=== PATIENT | male | born 1990 | race Caucasian/White ===

== ENCOUNTER 2024-01-16 15:20 | Outpatient (AMB) | payer OTHER, SELFPAY ==
--- NOTE | 2024-01-16 15:32 | A.OFFVISCC_ITS ---
Intake Visit Reasons: MAT Intake Allergies acetaminophen [From TYLENOL] Allergy (Unknown, Unverified 06/08/20 17:29) SICK TO STOMACH morphine [MORPHINE] Allergy (Unknown, Unverified 06/08/20 17:29) CHEST TIGHTNESS Penicillins [PENICILLINS] Allergy (Unknown, Unverified 06/08/20 17:29) HIVES tramadol [TRAMADOL] Allergy (Unknown, Unverified 06/08/20 17:29) TOO MUCH SEDATION HPI HPI MAT Intake: Details: Patient presents for intake and evaluation to transfer care to [facility] Previously doing HANNAH treatment via telehealth Weds last appt with provider At least 10 years 4mg daily (2mg BID) Medical History TKR 3 years ago via [facility] --right knee Pain in left knee Psoriatic arthritis--neck, shoulders, back Flonase inhaler gas relief asthma PCP: [facility] -couple years ago Started taking opiates in his teens to early Percocet 5mg --6x/day for about 8 years Knee pain Switched to Suboxone Substance Use History denies any use cocaine X1 when he was a teenager no alcohol BH: therapist: Grant monthly Denies any BH history Social 4 children 18, and 3 year old and 2 step kids (08/03) 4 years Medically disabled Brand name only (prior auth completed) Review of Systems Const Reports as per HPI and Reports no additional complaints Physical Exam Const General: cooperative, healthy appearing and no acute distress Nutritional Appearance: thin Orientation/consciousness: patient oriented x3 Limitations: no limitations Neuro General: patient oriented x3 Psych Appearance: well kempt Speech and movement: Clear speech present Affect: normal affect Attitude: cooperative Thought process: Circumstantial thought process present Thought content: Normal thought content present Insight: Good insight present (Psych) Judgement: Good judgement present (Psych) Assessment & Plan Assessment & Plan (1) Opioid dependence: Code(s): F11.20 - Opioid dependence, uncomplicated Category: Medical Plan: * continue suboxone at current dose * no refill needed at this time * follow up as scheduled
== END 2024-01-16 16:22 | disposition home or self-care (01) ==
PROVIDERS: PCP Internal Medicine; Visit Provider Nurse Practitioner Psychiatric/Mental Health
DX: F11.20 Opioid dependence, uncomplicated (principal)
CPT/HCPCS: 99204

== ENCOUNTER → 2024-01-16 15:20 | Outpatient (BNVA) | payer OTHER, SELFPAY | PROVIDERS: PCP Internal Medicine; Visit Provider Nurse Practitioner Psychiatric/Mental Health | DX: F11.20 Opioid dependence, uncomplicated (principal) | CPT/HCPCS: 99202 ==

== ENCOUNTER 2024-02-18 12:53 | Outpatient (AMB) | payer OTHER, SELFPAY ==
--- NOTE | 2024-02-18 13:01 | A.OFFVISCC_ITS ---
Vital Signs 02/18/24 13:02 BP 140/92 H Blood Pressure Location Rt brachial Position Sitting Pulse 75 Pulse Source Pulse Oximeter Pulse Oximetry (%) 97 Oxygen Delivery Method Room Air Intake Visit Reasons: MAT Visit Allergies acetaminophen [From TYLENOL] Allergy (Unknown, Unverified 06/08/20 17:29) SICK TO STOMACH morphine [MORPHINE] Allergy (Unknown, Unverified 06/08/20 17:29) CHEST TIGHTNESS Penicillins [PENICILLINS] Allergy (Unknown, Unverified 06/08/20 17:29) HIVES tramadol [TRAMADOL] Allergy (Unknown, Unverified 06/08/20 17:29) TOO MUCH SEDATION HPI HPI MAT Visit: Details: Patient presents for MAT clinic Has been taking suboxone for pain, was previously on narcotics but states he did not like how they made him feel Reports he has multiple surgeries to bilateral knees in addition to hernia repair Is hoping to trial a medication he does not need to take daily, states he gets busy and will forget to take his med until his pain flares States he has had reactions to generic suboxone (tachycardia, black outs , and increased asthma attacks), and is only able to tolerate name brand HPI Comments Details: Patient presents for MAT visit Review of Systems Const Reports as per HPI Physical Exam Vital Signs: Last Vital Signs Pulse 75 02/18/24 13:02 BP 140/92 H 02/18/24 13:02 Pulse Ox 97 02/18/24 13:02 Oxygen Delivery Method Room Air 02/18/24 13:02 Const General: cooperative and no acute distress Resp Effort & Inspection: normal respiratory effort and able to speak in complete sentences Psych Appearance: grossly normal Mental Status: mental status grossly normal Speech and movement: Normal speech and movement present Affect: normal affect Attitude: cooperative Thought process: Normal thought process present Results AMB 14 Panel Urine Drug Screen Urine Marijuana (THC) Positive Last Edit by Suzi Park CMA on 02/18/24 13 :06 Urine Cocaine Negative Last Edit by Suzi Park CMA on 02/18/24 13:06 Urine Morphine Negative Last Edit by Suzi Park CMA on 02/18/24 13:06 Urine Methamphetamine Negative Last Edit by Suzi Park CMA on 02/18/24 13 :06 Urine Amphetamine Negative Last Edit by Suzi Park CMA on 02/18/24 13:06 Urine Benzodiazepine Negative Last Edit by Suzi Park CMA on 02/18/24 13: 06 Urine Barbiturates Negative Last Edit by Suzi Park CMA on 02/18/24 13:06 Urine Methadone Negative Last Edit by Suzi Park CMA on 02/18/24 13:06 Urine Buprenorphine Positive Last Edit by Suzi Park CMA on 02/18/24 13:0 6 Urine Tricyclic Antidepressant Negative Last Edit by Suzi Park CMA on 02/18/24 13:06 Urine MDMA Negative Last Edit by Suzi Park CMA on 02/18/24 13:06 Urine Oxycodone Negative Last Edit by Suzi Park CMA on 02/18/24 13:06 Urine Phencyclidine Negative Last Edit by Suzi Park CMA on 02/18/24 13:0 6 Urine Propoxyphene Negative Last Edit by Suzi Park CMA on 02/18/24 13:06 Results Reviewed Results Reviewed: Laboratory Last Values POC Urine Buprenorphine Positive 02/18/24 13:05 POC Urine Morphine Negative 02/18/24 13:05 POC Urine Oxycodone Negative 02/18/24 13:05 POC Urine Methadone Negative 02/18/24 13:05 POC Urine Propoxyphene Negative 02/18/24 13:05 POC Urine Barbiturates Negative 02/18/24 13:05 POC U Tricyclic Antidpr Negative 02/18/24 13:05 POC Urine PCP Negative 02/18/24 13:05 POC Ur Amphetamines Negative 02/18/24 13:05 POC Ur Methamphetamine Negative 02/18/24 13:05 POC Urine MDMA Negative 02/18/24 13:05 POC Ur Benzodiazepine Negative 02/18/24 13:05 POC Urine Cocaine Negative 02/18/24 13:05 POC Ur Marijuana (THC) Positive 02/18/24 13:05 Assessment & Plan Assessment & Plan (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 Given patient's lack of HANNAH history, the patch is more clinically appropriate at this time vs the injection. -Education provided to rotate sites, cover if he will be swimming, monitor area for localized reaction, and to remove if he feels as though he is having any adverse reactions similar to when he took generic films. Educated him not to use heating pad with patch or to wear patch in hot tub as it will increase absorption rate. -Reviewed with him to call the clinic if his pain increases, if he has a reaction to the medication, or if he has difficulties obtaining from the pharmacy -Follow up 1 week telehealth to review effectiveness of patch Orders: Orders AMB 14 Panel Urine Drug Screen Today Z51.81 - Encounter for therapeutic drug level monitoring Medications: New Butrans 5 mcg/hour (buprenorphine) 1 patch transdermal Q7D 4 ea 0RF NS Z79.899 - Other equipment operator intermodal yard (current) drug therapy
[2024-02-18 13:02] VITALS: BP 140/92; PULSE 75; O2SAT 97
== END 2024-02-18 13:33 | disposition home or self-care (01) ==
PROVIDERS: PCP Internal Medicine; Visit Provider Nurse Practitioner Family
DX: Z51.81 Encounter for therapeutic drug level monitoring (principal); Z79.899 Other long term (current) drug therapy
CPT/HCPCS: 99213

== ENCOUNTER → 2024-02-18 12:53 | Outpatient (BNVA) | payer OTHER, SELFPAY | PROVIDERS: PCP Internal Medicine; Visit Provider Nurse Practitioner Family | DX: Z51.81 Encounter for therapeutic drug level monitoring (principal); Z79.899 Other long term (current) drug therapy | CPT/HCPCS: 80305; 99212 ==

== ENCOUNTER 2024-03-17 10:20 | Outpatient (AMB) | payer OTHER, SELFPAY ==
--- NOTE | 2024-03-17 10:24 | A.OFFVISCC_ITS ---
Intake Visit Reasons: MAT Allergies acetaminophen [From TYLENOL] Allergy (Unknown, Unverified 06/08/20 17:29) SICK TO STOMACH morphine [MORPHINE] Allergy (Unknown, Unverified 06/08/20 17:29) CHEST TIGHTNESS Penicillins [PENICILLINS] Allergy (Unknown, Unverified 06/08/20 17:29) HIVES tramadol [TRAMADOL] Allergy (Unknown, Unverified 06/08/20 17:) TOO MUCH SEDATION HPI HPI MAT: Details: Patient presents for follow up Reporting increasing pain in left knee--using cane for right now Currently prescribed Suboxone 2mg BID Labs to be complete today Needs to schedule appt with PCP Review of Systems Const Reports as per HPI and Reports no additional complaints Physical Exam Const General: cooperative and no acute distress Resp Effort & Inspection: normal respiratory effort and able to speak in complete sentences Psych Appearance: grossly normal Mental Status: mental status grossly normal Speech and movement: Normal speech and movement present Affect: normal affect Attitude: cooperative Thought process: Normal thought process present Assessment & Plan Assessment & Plan (1) Opioid dependence: Code(s): F11.20 - Opioid dependence, uncomplicated Category: Medical Plan: * follow up 5 weeks * rx due in a week
== END 2024-03-17 10:40 | disposition home or self-care (01) ==
PROVIDERS: PCP Internal Medicine; Visit Provider Nurse Practitioner Psychiatric/Mental Health
DX: F11.20 Opioid dependence, uncomplicated (principal)
CPT/HCPCS: 99213

== ENCOUNTER 2024-03-17 10:20 | Outpatient (REF) | payer OTHER, SELFPAY ==
[2024-03-17 11:03] LABS: MANUAL DIFF FLAG NO
[2024-03-17 11:38] LABS: Basophils Absolute Auto 0.1 X10*3/uL (0.0-0.2); Basophils Percent Auto 0.7 % (0-2); Eosinophils Absolute Auto 1.2 X10*3/uL (0.0-0.4); Hematocrit 40.7 % (42.0-52.0); Hemoglobin 13.9 g/dl (14.0-18.0); Imm Gran Abs Auto 0.02 X10*3/uL (0.00-0.03); Imm Gran Pct Auto 0.2 % (0.0-0.4); Lymphocytes Absolute Auto 2.3 X10*3/uL (1.2-4.9); Lymphocytes Percent Auto 25.5 % (20-40); Mean Corpuscular HGB Conc 34.2 g/dl (31.0-36.0); Mean Corpuscular Hemoglobin 30.9 pg (27.0-33.0); Mean Corpuscular Volume 90.4 fL (80.0-98.0); Mean Platelet Volume 10.1 fL (9.4-12.4); Monocytes Absolute Auto 0.8 X10*3/uL (0.1-1.2); Monocytes Percent Auto 8.7 % (2-11); Neutrophils Absolute Auto 4.6 x10*3/uL (2.0-8.3); Neutrophils Percent Auto 51.9 % (45-73); Platelet Count 193 X10*3/uL (160-400); Red Cell Distribution Width 12.7 % (11.0-16.0); White Blood Count 8.9 X10*3/uL (4.8-10.8)
[2024-03-17 12:31] LABS: Alanine Aminotransferase 15 U/L (0-40); Albumin Level 4.5 g/dL (3.5-5.0); Alkaline Phosphatase 46 U/L (39-117); Anion Gap 11 (12-20); Aspartate Amino Transferase 20 U/L (5-37); Bilirubin Direct 0.2 mg/dL (0.0-0.5); Bilirubin Total 0.4 mg/dL (0.0-1.0); Blood Urea Nitrogen 13 mg/dL (9-16); Calcium 9.2 mg/dL (8.4-10.2); Carbon Dioxide 28 mmol/L (22-29); Chloride 105 mmol/L (96-108); Estimated Glomerular Filt Rate > 60; Glucose Random 80 mg/dL (60-115); Potassium 4.4 mmol/L (3.3-5.1); Sodium 140 mmol/L (135-145); Total Protein 7.2 g/dL (6.5-8.0)
[2024-03-17 12:53] LABS: Hepatitis A Antibody IgG Nonreactive (Nonreactive); Hepatitis A Antibody IgM 0.14 Index (0-0.79); ~Hepatitis A Antibody IgG 0.15 S/CO (0.00-0.99); ~Hepatitis A Antibody IgM Nonreactive (Nonreactive)
[2024-03-17 12:54] LABS: HBS Num1 7.19 mIU/mL (0-7.99); HBc Num1 0.07 S/CO (0.00-0.79); HBsAGNum1 0.32 S/CO (0.00-0.99); HIV AB/AG Nonreactive (Nonreactive); HIV Num 1 0.06 S/CO (0.00-0.99); Hepatitis B Core Antibody Nonreactive (Nonreactive); Hepatitis B Surface Antigen Negative (Negative); ~HepC Num1 1.29 S/CO (0.00-0.79); ~Hepatitis B Surface Antibody NONREACTIVE (Nonreactive); ~Hepatitis C Antibody Reactive (Nonreactive)
== END 2024-03-17 10:21 | disposition home or self-care (01) ==
LOC: HO.LAB 10:20
PROVIDERS: PCP Internal Medicine; Visit Provider Nurse Practitioner Psychiatric/Mental Health
DX: F11.20 Opioid dependence, uncomplicated (principal); Z79.899 Other long term (current) drug therapy
CPT/HCPCS: 36415; 80053; 82248; 85025; 86704; 86706; 86708; 86709; 86803; 87340; 87389; 99212

== ENCOUNTER 2024-04-23 10:00 | Outpatient (AMB) | payer OTHER, SELFPAY ==
--- NOTE | 2024-04-23 10:05 | A.OFFVISCC_ITS ---
Intake Visit Reasons: MAT Allergies acetaminophen [From TYLENOL] Allergy (Unknown, Unverified 06/08/20 17:29) SICK TO STOMACH morphine [MORPHINE] Allergy (Unknown, Unverified 06/08/20 17:29) CHEST TIGHTNESS Penicillins [PENICILLINS] Allergy (Unknown, Unverified 06/08/20 17:29) HIVES tramadol [TRAMADOL] Allergy (Unknown, Unverified 06/08/20 17:) TOO MUCH SEDATION HPI HPI MAT: Details: Patient presents for follow up Currently prescribed 2mg BID No issues related to medication Reviewed lab results- reports history of Hep C with treatment Review of Systems Const Reports as per HPI and Reports no additional complaints Physical Exam Const General: cooperative and no acute distress Psych Appearance: grossly normal Mental Status: mental status grossly normal Speech and movement: Normal speech and movement present Affect: normal affect Attitude: cooperative Thought process: Normal thought process present Assessment & Plan Assessment & Plan (1) Opioid dependence: Code(s): F11.20 - Opioid dependence, uncomplicated Category: Medical Plan: * continue suboxone at current dose * follow up 4 weeks Medications: Refilled Suboxone 2-0.5 mg (buprenorphine-naloxone) 1 film buccal BID 60 ea 0RF NS
== END 2024-04-23 10:41 | disposition home or self-care (01) ==
PROVIDERS: PCP Internal Medicine; Visit Provider Nurse Practitioner Psychiatric/Mental Health
DX: F11.20 Opioid dependence, uncomplicated (principal)
CPT/HCPCS: 99213

== ENCOUNTER → 2024-04-23 10:00 | Outpatient (BNVA) | payer OTHER, SELFPAY | PROVIDERS: PCP Internal Medicine; Visit Provider Nurse Practitioner Psychiatric/Mental Health | DX: F11.20 Opioid dependence, uncomplicated (principal) | CPT/HCPCS: 99212 ==

== ENCOUNTER 2024-05-21 10:16 | Outpatient (AMB) | payer OTHER, SELFPAY ==
--- NOTE | 2024-05-28 17:51 | A.OFFVISCC_ITS ---
Intake Visit Reasons: MAT Tele Allergies acetaminophen [From TYLENOL] Allergy (Unknown, Unverified 06/08/20 17:29) SICK TO STOMACH morphine [MORPHINE] Allergy (Unknown, Unverified 06/08/20 17:29) CHEST TIGHTNESS Penicillins [PENICILLINS] Allergy (Unknown, Unverified 06/08/20 17:29) HIVES tramadol [TRAMADOL] Allergy (Unknown, Unverified 06/08/20 17:29) TOO MUCH SEDATION HPI HPI MAT Tele: Details: Patient presents for follow up via telehealth Currently prescribed Suboxone 2mg BID Tolerating current dose No questions or concerns at this time Review of Systems Const Reports as per HPI and Reports no additional complaints Telehealth Telehealth Telehealth Platform: Telephone Location of provider rendering services: practice address Location of patient: address on file Patient Identification confirmed using: Name, : Yes Telehealth method: voice only Patient verbally consented to treatment: Yes Patient verbally consented to billing insurance company: Yes Minutes spent on Phone/Video with Pt.: 15 Assessment & Plan Assessment & Plan (1) Opioid dependence: Code(s): F11.20 - Opioid dependence, uncomplicated Category: Medical Plan: * continue subxoone at current dose * follow up 6 weeks Medications: Refilled Suboxone 2-0.5 mg (buprenorphine-naloxone) 1 film buccal BID 60 ea 1RF NS
== END 2024-05-21 10:27 | disposition home or self-care (01) ==
PROVIDERS: PCP Internal Medicine; Visit Provider Nurse Practitioner Psychiatric/Mental Health
DX: F11.20 Opioid dependence, uncomplicated (principal)
CPT/HCPCS: 99213

== ENCOUNTER → 2024-05-21 10:16 | Outpatient (BNVA) | payer OTHER, SELFPAY | PROVIDERS: PCP Internal Medicine; Visit Provider Nurse Practitioner Psychiatric/Mental Health ==

== ENCOUNTER 2024-07-21 10:34 | Outpatient (AMB) | payer OTHER, SELFPAY ==
--- NOTE | 2024-07-21 10:47 | A.OFFVISCC_ITS ---
Intake Visit Reasons: MAT Allergies acetaminophen [From TYLENOL] Allergy (Unknown, Unverified 06/08/20 17:29) SICK TO STOMACH morphine [MORPHINE] Allergy (Unknown, Unverified 06/08/20 17:29) CHEST TIGHTNESS Penicillins [PENICILLINS] Allergy (Unknown, Unverified 06/08/20 17:29) HIVES tramadol [TRAMADOL] Allergy (Unknown, Unverified 06/08/20 17:29) TOO MUCH SEDATION HPI HPI MAT: Details: Patient presents for follow up Currently prescibed Suboxone 2mg BID tolerating current dose No issues related to recovery Recently had COVID --missed PCP appt due to being sick Review of Systems Const Reports as per HPI and Reports no additional complaints Physical Exam Const General: cooperative and no acute distress Psych Appearance: grossly normal Mental Status: mental status grossly normal Speech and movement: Normal speech and movement present Affect: normal affect Attitude: cooperative Thought process: Normal thought process present Assessment & Plan Assessment & Plan (1) Opioid dependence: Code(s): F11.20 - Opioid dependence, uncomplicated Category: Medical Plan: * continue subxoone at current dose * follow up 8 weeks Medications: Refilled Suboxone 2-0.5 mg (buprenorphine-naloxone) 1 film buccal BID 60 ea 1RF NS
== END 2024-07-21 11:35 | disposition home or self-care (01) ==
LOC: HO.HCC 10:35
PROVIDERS: PCP Internal Medicine; Visit Provider Nurse Practitioner Psychiatric/Mental Health
DX: F11.20 Opioid dependence, uncomplicated (principal)
CPT/HCPCS: 99213

== ENCOUNTER → 2024-07-21 10:34 | Outpatient (BNVA) | payer OTHER, SELFPAY | PROVIDERS: PCP Internal Medicine; Visit Provider Nurse Practitioner Psychiatric/Mental Health | DX: F11.20 Opioid dependence, uncomplicated (principal); Z51.81 Encounter for therapeutic drug level monitoring | CPT/HCPCS: 99212 ==

== ENCOUNTER 2024-09-13 14:24 | Outpatient (AMB) | payer OTHER, SELFPAY ==
--- NOTE | 2024-09-13 14:30 | A.OFFVISCC_ITS ---
Intake Visit Reasons: MAT Allergies acetaminophen [From TYLENOL] Allergy (Unknown, Unverified 06/08/20 17:29) SICK TO STOMACH morphine [MORPHINE] Allergy (Unknown, Unverified 06/08/20 17:29) CHEST TIGHTNESS Penicillins [PENICILLINS] Allergy (Unknown, Unverified 06/08/20 17:29) HIVES tramadol [TRAMADOL] Allergy (Unknown, Unverified 06/08/20 17:) TOO MUCH SEDATION HPI HPI MAT: Details: Patient presents for follow up Currently prescribed Suboxone 2mg BID Denies any issues with medication Has not yet rescheduled his PCP appt Review of Systems Const Reports as per HPI and Reports no additional complaints Physical Exam Const General: cooperative and no acute distress Psych Appearance: grossly normal Mental Status: mental status grossly normal Speech and movement: Normal speech and movement present Affect: normal affect Attitude: cooperative Thought process: Normal thought process present Assessment & Plan Assessment & Plan (1) Opioid dependence: Code(s): F11.20 - Opioid dependence, uncomplicated Category: Medical Plan: * continue subxoone at current dose * follow up 8 weeks * refill not yet due
== END 2024-09-13 15:00 | disposition home or self-care (01) ==
PROVIDERS: PCP Internal Medicine; Visit Provider Nurse Practitioner Psychiatric/Mental Health
DX: F11.20 Opioid dependence, uncomplicated (principal)
CPT/HCPCS: 99213

== ENCOUNTER → 2024-09-13 14:24 | Outpatient (BNVA) | payer OTHER, SELFPAY | PROVIDERS: PCP Internal Medicine; Visit Provider Nurse Practitioner Psychiatric/Mental Health | DX: F11.20 Opioid dependence, uncomplicated (principal) | CPT/HCPCS: 99212 ==

== ENCOUNTER 2024-11-19 09:06 | Outpatient (AMB) | payer OTHER, SELFPAY ==
--- NOTE | 2024-11-19 09:18 | A.OFFVISCC_ITS ---
Intake Visit Reasons: MAT Allergies acetaminophen [From TYLENOL] Allergy (Unknown, Unverified 06/08/20 17:29) SICK TO STOMACH morphine [MORPHINE] Allergy (Unknown, Unverified 06/08/20 17:29) CHEST TIGHTNESS Penicillins [PENICILLINS] Allergy (Unknown, Unverified 06/08/20 17:29) HIVES tramadol [TRAMADOL] Allergy (Unknown, Unverified 06/08/20 17:29) TOO MUCH SEDATION HPI HPI MAT: Details: Patient presents for follow up Currently prescribed Suboxone 2mg BID Tolerating current dose Reports he fell on the ice a few weeks back, injured his knee Knee is improving, however missed appt with PCP Denies any side effects from medication No sleeping well due to recent cold Review of Systems Const Reports as per HPI Physical Exam Const General: cooperative and no acute distress Psych Appearance: grossly normal Mental Status: mental status grossly normal Speech and movement: Normal speech and movement present Affect: normal affect Attitude: cooperative Thought process: Normal thought process present Assessment & Plan Assessment & Plan (1) Opioid dependence: Code(s): F11.20 - Opioid dependence, uncomplicated Category: Medical Plan: * continue subxoone at current dose * follow up 8 weeks Medications: Refilled Suboxone 2-0.5 mg (buprenorphine-naloxone) 1 film buccal BID 60 ea 1RF NS
--- OUTSIDE RECORDS SUMMARY | 2024-11-19 09:39 | XMS_ITS | Clinical Summary ---
Demographics Address [address] [place] [address] Home Phone Preferred Language en Marital Status Jain Affiliation Unknown Race White Ethnic Group Not or Lati no Author Organization [facility] Address [address] [place] [address] Phone Care Team Providers Care Doll Maker Name Role Phone Unavailable Primary Care Provider Unavailabl e Social History Tobacco Use Types Packs/Day Years Used Date Smoking Tobacco: Never Assessed Sex and Gender Information Value Date Recorded Sex Assigned at Not on file Legal Sex Male 7:07 PM EST Gender Identity Not on file Sexual Orientation Not on file Plan of Treatment Health Maintenance Due Date Last Done Comments DTaP,Tdap,and Td Vaccines (1 - Tdap) 01/10/2007 Hepatitis B Vaccines (1 of 3 - 19+ 3-dose series) 01/10/2007 Cholesterol Screening (Lipid Panel) 10/21/2023 Depression Screening 10/21/2023 HIV Screening 10/21/2023 Hepatitis C Screening 10/21/2023 Social Influencers of Health Screening 10/21/2023 COVID-19 Vaccine (2023-2 5 season) 2024 Influenza Vaccine (#1) 2024 HIB Vaccines Aged Out No longer eligi ble based on patient's age to complete this topic HPV Vaccines Aged Out No longer eligi ble based on patient's age to complete this topic Hepatitis A Vaccines Aged Out No long er eligible based on patient's age to complete this topic IPV Vaccines Aged Out No longer eligi ble based on patient's age to complete this topic MMR Vaccines Aged Out No longer eligi ble based on patient's age to complete this topic Meningococcal ACWY Vaccine Aged Out N o longer eligible based on patient's age to complete this topic Meningococcal B Vacine Aged Out No lo nger eligible based on patient's age to complete this topic Pneumococcal Vaccine: Pediat rics (0 to 5 Years) and At-Risk Patients (6 to 64 Years) Aged Out No longer eligible b ased on patient's age to complete this topic RSV Immunization Patients Un ashu 20 months Aged Out No longer eligible b ased on patient's age to complete this topic Varicella Vaccines Aged Out No longer eligible based on patient's age to complete this topic
== END 2024-11-19 09:40 | disposition home or self-care (01) ==
PROVIDERS: PCP Internal Medicine; Visit Provider Nurse Practitioner Psychiatric/Mental Health
DX: F11.20 Opioid dependence, uncomplicated (principal)
CPT/HCPCS: 99213

== ENCOUNTER → 2024-11-19 09:06 | Outpatient (BNVA) | payer OTHER, SELFPAY | PROVIDERS: PCP Internal Medicine; Visit Provider Nurse Practitioner Psychiatric/Mental Health | DX: F11.20 Opioid dependence, uncomplicated (principal) | CPT/HCPCS: 99212 ==

== ENCOUNTER 2025-01-14 09:12 | Outpatient (AMB) | payer OTHER, SELFPAY ==
--- OUTSIDE RECORDS SUMMARY | 2025-01-14 09:24 | XMS_ITS | Clinical Summary ---
Demographics Address [address] [place] [address] Home Phone Preferred Language en Marital Status Uatsdin Affiliation Unknown Race White Ethnic Group Not or Lati no Author Organization [facility] Address [address] [place] [address] Phone Care Team Providers Care Biochemist Name Role Phone Unavailable Primary Care Provider [...] Vaccine (2023-2 5 season) 2024 Influenza Vaccine (Season Ended) 2025 HIB Vaccines Aged Out No longer eligi [...] age to complete this topic Meningococcal B Vaccine Aged Out No l onger eligible based on patient's age to complete [...]
[2025-01-14 09:28] VITALS: BP 118/70; O2SAT 99; BMI 20.4
--- NOTE | 2025-01-14 09:28 | MHC.OFFVIS ---
Vital Signs 01/14/25 09:28 Height 5 ft 7 in Weight 130 lb BMI 20.4 BP 118/70 Pulse Oximetry (%) 99 Intake Visit Reasons: MAT Allergies acetaminophen [From TYLENOL] Allergy (Unknown, Unverified 01/14/25 09:31) SICK TO STOMACH morphine [MORPHINE] Allergy (Unknown, Unverified 01/14/25 09:31) CHEST TIGHTNESS Penicillins [PENICILLINS] Allergy (Unknown, Unverified 01/14/25 09:31) HIVES tramadol [TRAMADOL] Allergy (Unknown, Unverified 01/14/25 09:31) TOO MUCH SEDATION HPI HPI MAT: Details: He has chronic OUD due to pain from psoriatic arthritis and adolescent knee surgeries through [facility]. He takes brand name only Suboxone 2/.5,2 daily. He uses rare NSAIDS. He has been doing well. He has Hepatitis C in past ,treated with interferon and cure. [facility] Medical History (Updated 01/14/25 @ 10:00 by Nicole Smith MD) Hepatitis C antibody detected Review of Systems Const All systems reviewed & are unremarkable except as noted in HPI and below Physical Exam Vital Signs: Last Vital Signs BP 118/70 01/14/25 09:28 Pulse Ox 99 01/14/25 09:28 BMI result Body Mass Index 20.4 Const General: cooperative Orientation/consciousness: patient oriented x3 HEENT Head: Yes normal to inspection Mouth: Normal oral and palatal mucosa present Eyes General: appearance normal, both eyes and all related structures Pupils: Equal, round and reactive pupils present Resp Effort & Inspection: normal respiratory effort Cardio Rate: regular rate Rhythm: regular rhythm GI Palpation (GI): Soft to palpation and nontender General: Yes no CVA tenderness Back/Spine/Pelvis Back: no CVA tenderness Skin General skin exam: no rashes or lesions noted Neuro General: patient oriented x3 Cranial nerves: Yes CN's II-XII intact bilaterally and Yes Equal, round and reactive pupils present Extrem Other: multiple knee scars Psych Appearance: grossly normal Results AMB 14 Panel Urine Drug Screen Urine Marijuana (THC) Positive Last Edit by Prince Perales CMA on 01/14/25 09:37 Urine Cocaine Negative Last Edit by Prince Perales CMA on 01/14/25 09:37 Urine Morphine Negative Last Edit by Prince Perales CMA on 01/14/25 09:37 Urine Methamphetamine Negative Last Edit by Prince Perales, ENERGY CONSULTANT on 01/14/25 09:37 Urine Amphetamine Negative Last Edit by Prince Perales, ENERGY CONSULTANT on 01/14/25 09:37 Urine Benzodiazepine Negative Last Edit by Prince Perales, ENERGY CONSULTANT on 01/14/25 09:37 Urine Barbiturates Negative Last Edit by Prince Perales, ENERGY CONSULTANT on 01/14/25 09:37 Urine Methadone Negative Last Edit by Prince Perales, ENERGY CONSULTANT on 01/14/25 09:37 Urine Buprenorphine Positive Last Edit by Prince Perales, ENERGY CONSULTANT on 01/14/25 09:37 Urine Tricyclic Antidepressant Negative Last Edit by Prince Perales, ENERGY CONSULTANT on 01/14/25 09:37 Urine MDMA Negative Last Edit by Prince Perales, ENERGY CONSULTANT on 01/14/25 09:37 Urine Oxycodone Negative Last Edit by Prince Perales, DONOVAN on 01/14/25 09:37 Urine Phencyclidine Negative Last Edit by Prince Perales, DONOVAN on 01/14/25 09:37 Urine Propoxyphene Negative Last Edit by Prince Perales, DONOVAN on 01/14/25 09:37 Results Reviewed Results Reviewed: Laboratory Last Values POC Urine Buprenorphine Positive 01/14/25 09:34 POC Urine Morphine Negative 01/14/25 09:34 POC Urine Oxycodone Negative 01/14/25 09:34 POC Urine Methadone Negative 01/14/25 09:34 POC Urine Propoxyphene Negative 01/14/25 09:34 POC Urine Barbiturates Negative 01/14/25 09:34 POC U Tricyclic Antidpr Negative 01/14/25 09:34 POC Urine PCP Negative 01/14/25 09:34 POC Ur Amphetamines Negative 01/14/25 09:34 POC Ur Methamphetamine Negative 01/14/25 09:34 POC Urine MDMA Negative 01/14/25 09:34 POC Ur Benzodiazepine Negative 01/14/25 09:34 POC Urine Cocaine Negative 01/14/25 09:34 POC Ur Marijuana (THC) Positive 01/14/25 09:34 Assessment & Plan Assessment & Plan (1) Opioid dependence: Comment: He has been doing well on current dose and has Narcan at home Suboxone 2/.5 SL bid ,one month and one refill. 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 Orders: Orders Hepatitis C Viral Load Today - Opioid dependence, uncomplicated, Z79.899 - Other termite control technician (current) drug therapy Liver Fibrosis Pnl Today R76.8 - Other specified abnormal immunological findings in serum, Z79. - Other residential (current) drug therapy T Spot TB Today . - Opioid dependence, uncomplicated Prothrombin Time INR Today R76.8 - Other specified abnormal immunological findings in serum AMB 14 Panel Urine Drug Screen Today Z51.81 - Encounter for therapeutic drug level monitoring Syphilis Screen Today - Opioid dependence, uncomplicated Complete Blood Count Auto Diff Today R76.8 - Other specified abnormal immunological findings in serum Liver Panel Today R76.8 - Other specified abnormal immunological findings in serum Creatinine Today R76.8 - Other specified abnormal immunological findings in serum Medications: New buprenorphine-naloxone 2-0.5 mg (Suboxone) place 1 strip/tab under (each) side of tongue brand name medically necessary 2 film buccal DAILY 30 days 60 ea 1RF Coding Level of Care Code Est Pt Level 4 (74678) Diagnoses Opioid dependence . Other residential (current) drug therapy Z79. Hepatitis C antibody detected R76.8
== END 2025-01-14 09:55 | disposition home or self-care (01) ==
LOC: HO.HCC 09:13
PROVIDERS: PCP Internal Medicine; Visit Provider Internal Medicine
DX: F11.20 Opioid dependence, uncomplicated (principal); Z79.899 Other long term (current) drug therapy; R76.8 Other specified abnormal immunological findings in serum; Z51.81 Encounter for therapeutic drug level monitoring
CPT/HCPCS: 99214

== ENCOUNTER → 2025-01-14 09:12 | Outpatient (BNVA) | payer OTHER, SELFPAY | PROVIDERS: PCP Internal Medicine; Visit Provider Internal Medicine | DX: F11.20 Opioid dependence, uncomplicated (principal); R76.8 Other specified abnormal immunological findings in serum; Z51.81 Encounter for therapeutic drug level monitoring; Z79.899 Other long term (current) drug therapy | CPT/HCPCS: 80307; 99212 ==

== ENCOUNTER 2025-03-21 15:00 | Outpatient (AMB) | payer OTHER, SELFPAY ==
--- OUTSIDE RECORDS SUMMARY | 2025-03-21 15:26 | XMS_ITS | Clinical Summary ---
Demographics Address [address] [place] [address] Home Phone Preferred Language en Marital Status Protestant Affiliation Unknown Race White Ethnic Group Not or Lati no Author Organization [facility] Address [address] [place] [address] Phone Care Team Providers Care Precision Market Insights Name Role Phone Unavailable Primary Care Provider [...]
[2025-03-21 15:29] VITALS: PULSE 80
--- NOTE | 2025-03-21 15:29 | MHC.AM.SUB ---
Vital Signs 03/21/25 15:29 Pulse 80 Pulse Source Pulse Oximeter Oxygen Delivery Method Room Air Intake Visit Reasons: MAT Allergies acetaminophen (From TYLENOL) Allergy (Unknown, Unverified 01/14/25 09:31) SICK TO STOMACH morphine (MORPHINE) Allergy (Unknown, Unverified 01/14/25 09:31) CHEST TIGHTNESS Penicillins (PENICILLINS) Allergy (Unknown, Unverified 01/14/25 09:31) HIVES tramadol (TRAMADOL) Allergy (Unknown, Unverified 01/14/25 09:31) TOO MUCH SEDATION Medication List - Last Reconciled 03/21/25 by JOSÉ MIGUEL Mayes albuterol sulfate 90 mcg/actuation (Ventolin HFA) 2 puffs inhalation Q4-6H PRN fluticasone propionate 50 mcg/actuation (Flonase Allergy Relief) 2 sprays intranasal DAILY Suboxone 2-0.5 mg (buprenorphine-naloxone) 1 film buccal BID NS HPI Comments Details: The patient is a 35 year old male that presents for MAT treatment follow up. Reports using Suboxone 2-0.5 mg, twice per day with adequate coverage for pain management r/t psoriatic arthritis. At present reports walking difficulty and sweling at left knee. Does note mild improveemnt from onset a week ago. Encouraged to follow up with PCP, as soon as possible, for further evaluation. Review of Systems Const All systems reviewed & are unremarkable except as noted in HPI and below Eyes Reports as per HPI ENT Reports as per HPI Card Reports as per HPI Resp Reports as per HPI GI Reports as per HPI Reports no additional complaints Musc Reports joint swelling and Reports limited range of motion (The patient reports new onset of left knee swelling and limited mobility. ) Skin/Breast Reports as per HPI Neuro Reports as per HPI Psych Reports as per HPI Endo Reports as per HPI Physical Exam Vital Signs: Last Vital Signs Pulse 80 03/21/25 15:29 Oxygen Delivery Method Room Air 03/21/25 15:29 Const General: cooperative and well groomed Nutritional Appearance: thin Orientation/consciousness: patient oriented x3 Limitations: no limitations HEENT Head: Yes normal to inspection Eyes General: appearance normal, both eyes and all related structures Neck Neck: Yes normal visual inspection Resp Effort & Inspection: normal respiratory effort Skin General skin exam: scars (Right knee scar from a replacement. ) Neuro General: patient oriented x3 Psych Appearance: well kempt Mental Status: mental status grossly normal Speech and movement: Normal speech and movement present Affect: normal affect Attitude: cooperative Thought process: Normal thought process present Thought content: Normal thought content present Insight: Good insight present (Psych) Judgement: Good judgement present (Psych) [facility] Medical History Hepatitis C antibody detected Assessment & Plan Assessment & Plan (1) Opioid dependence: Comment: He has been doing well on current dose and has Narcan at home Suboxone 2/.5 SL bid ,one month and one refill. Code(s): F11.20 - Opioid dependence, uncomplicated Category: Medical Plan The plan of care is to continue with Suboxone 2-0.5 mg, BID (brand name required due to a reported allergy) and follow up in two months or sooner if needed. Medications: Refilled Suboxone 2-0.5 mg (buprenorphine-naloxone) 1 film buccal BID 60 ea 1RF NS
== END 2025-03-21 15:44 | disposition home or self-care (01) ==
LOC: HO.HCC 15:01
PROVIDERS: PCP Internal Medicine; Visit Provider Clinical Nurse Specialist Psychiatric/Mental Health
DX: F11.20 Opioid dependence, uncomplicated (principal)
CPT/HCPCS: 99213

== ENCOUNTER → 2025-03-21 15:00 | Outpatient (BNVA) | payer OTHER, SELFPAY | PROVIDERS: PCP Internal Medicine; Visit Provider Clinical Nurse Specialist Psychiatric/Mental Health | DX: F11.20 Opioid dependence, uncomplicated (principal) | CPT/HCPCS: 99212 ==

== ENCOUNTER 2025-05-18 08:58 | Outpatient (AMB) | payer OTHER, SELFPAY ==
[2025-05-18 09:07] VITALS: BP 110/72; PULSE 71; O2SAT 98; BMI 19.8
--- NOTE | 2025-05-18 09:07 | MHC.OFFVIS ---
Vital Signs 05/18/25 09:07 Height 5 ft 7 in Weight 126 lb 8 oz BMI 19.8 BP 110/72 Pulse 71 Pulse Source Pulse Oximeter Pulse Oximetry (%) 98 Oxygen Delivery Method Room Air Intake Visit Reasons: MAT Allergies acetaminophen (From TYLENOL) Allergy (Unknown, Verified 05/18/25 09:08) SICK TO STOMACH morphine (MORPHINE) Allergy (Unknown, Verified 05/18/25 09:08) CHEST TIGHTNESS Penicillins (PENICILLINS) Allergy (Unknown, Verified 05/18/25 09:08) HIVES tramadol (TRAMADOL) Allergy (Unknown, Verified 05/18/25 09:08) TOO MUCH SEDATION HPI Comments Details: A 35-year-old male presents for a follow-up r/t HANNAH in sustained remission with buprenorphine-naloxone. Denies use of opiates, alcohol, and other substances. Reports continuing to smoke cigarettes and cannabis although notes he has decreased from 1 pack per day to 5 cigarettes per day. [facility] Medical History Hepatitis C antibody detected Review of Systems Const All systems reviewed & are unremarkable except as noted in HPI and below Physical Exam Vital Signs: Last Vital Signs Pulse 71 05/18/25 09:07 BP 110/72 05/18/25 09:07 Pulse Ox 98 05/18/25 09:07 Oxygen Delivery Method Room Air 05/18/25 09:07 BMI result Body Mass Index 19.8 Assessment & Plan Assessment & Plan (1) Opioid use disorder in remission: Code(s): F11.91 - Opioid use, unspecified, in remission Category: Medical Plan The plan of care is to continue with Suboxone 2-0.5 mg, name brand required due to an side effect/allergy. Follow-up in 2 months or sooner if needed. Medications: Refilled Suboxone 2-0.5 mg (buprenorphine-naloxone) 1 film buccal BID 60 ea 1RF NS Patient Instructions: - Continue with Suboxone as prescribed. - Follow up in 2 months or sooner if needed. - Call with questions, concerns, or to report side effects/new onset of symptoms to [facility]. - The patient verbalized understanding and agreed with plan of care. Coding Level of Care Code Est Pt Level 3 (17146) Diagnoses Opioid use disorder in remission F11.91
--- OUTSIDE RECORDS SUMMARY | 2025-05-18 09:26 | XMS_ITS | Clinical Summary ---
Demographics Address [address] [place] [address] Home Phone Preferred Language en Marital Status Confucianist Affiliation Unknown Race White Ethnic Group Not or Lati no Author Organization [facility] Address [address] [place] [address] Phone Care Team Providers Care Insurance Verifier Name Role Phone Unavailable Primary Care Provider [...] series) 01/10/2007 Cholesterol Screening (Lipid Panel) 10/21/2023 HIV Screening 10/21/2023 Hepatitis C Screening 10/21/2023 Social Influencers of Health Screening 10/21/2023 COVID-19 Vaccine (2023-2 5 season) 2024 Depression Screening 09/22/2024 Influenza Vaccine (#1) 2025 HIB Vaccines Aged Out No longer [...] 5 Years) and At-Risk Patients (6 to 49 Years) Aged Out No longer eligible b ased on patient's age to complete this topic RSV Immunization Patients Un ashu 20 months Aged Out No longer eligible b ased on patient's age to complete this topic Varicella Vaccines Aged Out No longer eligible based on patient's age to complete this topic
== END 2025-05-18 09:30 | disposition home or self-care (01) ==
LOC: HO.HCC 08:58
PROVIDERS: PCP Internal Medicine; Visit Provider Clinical Nurse Specialist Psychiatric/Mental Health
DX: F11.91 Opioid use, unspecified, in remission (principal)
CPT/HCPCS: 99213

== ENCOUNTER → 2025-05-18 08:58 | Outpatient (BNVA) | payer OTHER, SELFPAY | PROVIDERS: PCP Internal Medicine; Visit Provider Clinical Nurse Specialist Psychiatric/Mental Health | DX: F11.21 Opioid dependence, in remission (principal); F12.20 Cannabis dependence, uncomplicated; F17.210 Nicotine dependence, cigarettes, uncomplicated; Z79.899 Other long term (current) drug therapy | CPT/HCPCS: 99212 ==

== ENCOUNTER 2025-07-18 09:30 | Outpatient (AMB) | payer OTHER, SELFPAY ==
[2025-07-18 09:52] VITALS: PULSE 88; O2SAT 97; BMI 19.7
--- NOTE | 2025-07-18 09:52 | A.OFFVIS_ITS ---
Vital Signs 07/18/25 09:52 Height 5 ft 7 in Weight 126 lb BMI 19.7 Pulse 88 Pulse Oximetry (%) 97 Intake Visit Reasons: MAT Allergies acetaminophen (From TYLENOL) Allergy (Unknown, Verified 07/18/25 09:52) SICK TO STOMACH morphine (MORPHINE) Allergy (Unknown, Verified 07/18/25 09:52) CHEST TIGHTNESS Penicillins (PENICILLINS) Allergy (Unknown, Verified 07/18/25 09:52) HIVES tramadol (TRAMADOL) Allergy (Unknown, Verified 07/18/25 09:52) TOO MUCH SEDATION HPI Comments Details: A 35-year-old male presents for a follow-up visit r/t HANNAH in sustained remission with buprenorphine-naloxone 2-05 mg BID. Denies use of opiates, alcohol, and other substances and continues to decrease the quantity of cigarette smoking from 5 cigarettes to 3 cigarettes per day and is no longer smoking cannabis instead using THC gummies at night on intermittent basis. [facility] Medical History Hepatitis C antibody detected Physical Exam Vital Signs: Last Vital Signs Pulse 88 07/18/25 09:52 Pulse Ox 97 07/18/25 09:52 BMI result Body Mass Index 19.7 Assessment & Plan Assessment & Plan (1) Opioid use disorder in remission: Code(s): F11.91 - Opioid use, unspecified, in remission Category: Medical Plan The plan of care is to continue with buprenorphine-naloxone 2-0.5 mg BID and continue to work on decreasing cigarette use. Follow-up in 2 months or sooner if needed. Medications: Refilled Suboxone 2-0.5 mg (buprenorphine-naloxone) 1 film buccal BID 60 ea 1RF NS Patient Instructions: - Continue with buprenorphine-naloxone as prescribed. - Continue to reduce cigarette use. - Follow-up in 2 months or sooner if needed. - Call with questions, concerns, or to report side effects/new onset of symptoms to [facility]. - The patient verbalized understanding and agreed with plan of care. Coding Level of Care Code Est Pt Level 3 (30053) Diagnoses Opioid use disorder in remission F11.91
== END 2025-07-18 09:56 | disposition home or self-care (01) ==
LOC: HO.HCC 09:30
PROVIDERS: PCP Internal Medicine; Visit Provider Clinical Nurse Specialist Psychiatric/Mental Health
DX: F11.91 Opioid use, unspecified, in remission (principal)
CPT/HCPCS: 99213

== ENCOUNTER → 2025-07-18 09:30 | Outpatient (BNVA) | payer OTHER, SELFPAY | PROVIDERS: PCP Internal Medicine; Visit Provider Clinical Nurse Specialist Psychiatric/Mental Health | DX: F11.91 Opioid use, unspecified, in remission (principal) | CPT/HCPCS: 99212 ==

== ENCOUNTER 2025-09-12 09:55 | Outpatient (AMB) | payer OTHER, SELFPAY ==
--- NOTE | 2025-09-12 10:34 | MHC.AM.SUB ---
Vital Signs 09/12/25 10:36 Height 5 ft 7 in Weight 125 lb 10.616 oz BMI 19.7 Intake Visit Reasons: MAT Visit Allergies acetaminophen (From TYLENOL) Allergy (Unknown, Verified 09/12/25 10:37) SICK TO STOMACH morphine (MORPHINE) Allergy (Unknown, Verified 09/12/25 10:37) CHEST TIGHTNESS Penicillins (PENICILLINS) Allergy (Unknown, Verified 09/12/25 10:37) HIVES tramadol (TRAMADOL) Allergy (Unknown, Verified 09/12/25 10:37) TOO MUCH SEDATION HPI Comments Details: A 35-year-old male presents for a telehealth visit for HANNAH in sustained remission with buprenorphine-naloxone 2-0.5 mg BID. Reports feeling stable and doing well. Engages in conversation re: 5-year-old daughter has influenza A and present as coping with similar symptoms. Review of Systems Const All systems reviewed & are unremarkable except as noted in HPI and below Physical Exam Vital Signs: BMI result Body Mass Index 19.7 Const General: cooperative Telehealth Telehealth Telehealth Platform: Telephone Location of patient: address on file Patient Identification confirmed using: Name, : Yes Telehealth method: voice only Patient verbally consented to treatment: Yes Patient verbally consented to billing insurance company: Yes Patient informed of any privacy concerns related to visit: Yes [facility] Medical History Hepatitis C antibody detected Assessment & Plan Assessment & Plan (1) Opioid use disorder in remission: Code(s): F11.91 - Opioid use, unspecified, in remission Category: Medical Plan The plan of care is to continue with buprenorphine-naloxone 2-0.5 mg BID, encouraged to follow-up with primary care provider re: symptoms of influenza. Follow-up in 3 months or sooner if needed. Medications: Changed From Suboxone 2-0.5 mg (buprenorphine-naloxone) 1 film buccal BID 60 ea 1RF NS To Suboxone 2-0.5 mg (buprenorphine-naloxone) One film sublingually twice per day 1 film sublingual BID 60 ea 1RF NS Patient Instructions: - Continue with buprenorphine-naloxone as prescribed. - Follow up with primary care provider re: symptoms of influenza. - Follow-up in 3 months or sooner if needed. - Call with questions, concerns, or to report side effects/new onset of symptoms to [facility]. - The patient verbalized understanding and agreed with plan of care.
[2025-09-12 10:36] VITALS: BMI 19.7
--- OUTSIDE RECORDS SUMMARY | 2025-09-12 11:45 | XMS_ITS | Clinical Summary ---
Demographics Address [address] [place] [address] Home Phone Preferred Language en Marital Status Congregation Affiliation Unknown Race White Ethnic Group Not or Lati no Author Organization [facility] Address [address] [place] [address] Phone Care Team Providers Care Building Construction Estimator Name Role Phone Unavailable Primary Care Provider [...] of 3 - 19+ 3-dose series) 01/10/2007 HPV Vaccines (1 - 3-dose SCD M series) 01/10/2015 Cholesterol Screening (Lipid Panel) 10/21/2023 HIV Screening 10/21/2023 Hepatitis C Screening 10/21/2023 Social Influencers of Health Screening 10/21/2023 Depression Screening 09/22/2024 COVID-19 Vaccine (1 - 2024-2 6 season) 2025 Influenza Vaccine (#1) 2025 RSV Immunization Adult Patie nts (1 - 1-dose 75+ series) 01/10/2063 HIB Vaccines Aged Out No longer eligi [...]
== END 2025-09-12 10:34 | disposition home or self-care (01) ==
LOC: HO.HCC 09:55
PROVIDERS: PCP Internal Medicine; Visit Provider Clinical Nurse Specialist Psychiatric/Mental Health
DX: F11.91 Opioid use, unspecified, in remission (principal)
CPT/HCPCS: 99213